=== PATIENT | female | born 1960 | race Hispanic/Latino ===

== ENCOUNTER 2019-05-14 15:29 | Emergency (ER) | payer SELFPAY ==
--- NOTE | 2019-05-14 16:37 | RAD REPORT ---
EXAM DESCRIPTION: RAD - Wrist Left 3 View - 05/14/2019 4:29 pm CLINICAL HISTORY: fall 2-3 weeks ago;Pain Pain COMPARISON: <Comparisons> FINDINGS: Intraarticular fracture of the distal radius is seen with mild palmar angulation. Ulnar st yloid avulsion fracture also seen. Mild soft tissue swelling is present.
--- NOTE | 2019-05-14 17:09 | EDPHYS ---
Physician Documentation [facility] Name: Sydni Mcrae Age: 58 yrs Sex: Female : 1960 Arrival Date: 05/14/2019 Time: 15:33 Bed 24 Private MD: ED Physician Dann Archuleta HPI: 05/14 16:10 This 58 yrs old Female presents to ER via Ambulatory with complaints of Wrist cp Injury. 16:10 The patient or guardian reports deformity, injury, pain. The complaints affect the left cp wrist diffusely. Context: resulted from a fall. Onset: The symptoms/episode began/occurred 04-24-2019. Associated signs and symptoms: Pertinent negatives: cyanosis distally, decreased sensation distally. Patient reports fall on 04-24-2019 causing injury to left wrist. Patient reports she thought it was sprain so went on trip to [place]. After returning from [place], patient was seen at clinic and told wrist is broken and sent to ED for evaluation. Historical: - Allergies: 15:41 No Known Allergies; sg - PMHx: 15:41 None; sg - PSHx: 15:41 Tubal ligation; sg - Immunization history:: Adult Immunizations unknown. - Social history:: Smoking status: Patient/guardian denies using tobacco. - Ebola Screening: : No symptoms or risks identified at this time. ROS: 16:15 Constitutional: Negative for body aches, chills, fever, poor PO intake. cp 16:15 Eyes: Negative for injury, pain, redness, and discharge. cp 16:15 Cardiovascular: Negative for chest pain, palpitations. 16:15 Respiratory: Negative for cough, shortness of breath, wheezing. 16:15 Abdomen/GI: Negative for abdominal pain, vomiting, diarrhea, constipation. 16:15 MS/extremity: Positive for injury or acute deformity, decreased range of motion, swelling, tenderness, of the left wrist, Negative for paresthesias. 16:15 Skin: Negative for rash. 16:15 Neuro: Negative for altered mental status, headache, weakness. 16:15 All other systems are negative. Exam: 16:20 Head/Face: Normocephalic, atraumatic. cp 16:20 Constitutional: The patient appears in no acute distress, alert, awake, non-toxic, well developed, well nourished. 16:20 Musculoskeletal/extremity: ROM: limited passive range of motion due to pain, in the left wrist, Perfusion: the extremity is normally perfused throughout, Sensation intact. Joints: All joints are normal except the left wrist displays deformity, painful range of motion, swelling, tenderness. 16:20 Skin: intact and without open wounds. Vital Signs: 15:41 BP 154 / 62; Pulse 88; Resp 18; Temp 98.2; Pulse Ox 100% on R/A; Pain 8/10; sg Procedures: 17:39 Splinting: Splint applied to left wrist using sling, Orthoglass sugar tong. applied by tech. nurse. Examined by me, post splint application: neurovascular intact, Patient tolerated well. MDM: 16:06 Patient medically screened. cp 17:08 Data reviewed: vital signs, nurses notes, radiologic studies, plain films, I have cp discussed the patient's presentation/case with the attending Emergency Department Physician; and as a result, I will discharge patient. 17:08 Test interpretation: by ED physician or midlevel provider: plain radiologic studies, cp xrays left wrist show mildly displaced distal radius radius and ulna styloid fracture. 05/14 16:07 Order name: XRAY Wrist LEFT 3 view; Complete Time: 16:46 cp 05/14 16:46 Interpretation: Reviewed. 05/14 16:47 Order name: Sugar Tong Forearm Splint; Complete Time: 18:00 05/14 16:47 Order name: Sling; Complete Time: 18:01 Administered Medications: No medications were administered Disposition: 05/15 08:29 Co-signature as Attending Physician, Dann Archuleta MD I agree with the assessment and [facility] plan of care. Disposition: 05/14/19 17:08 Discharged to Home. Impression: Left distal radius fracture. - Condition is Stable. - Discharge Instructions: Wrist Fracture Treated With ORIF. - Prescriptions for Tramadol 50 mg Oral Tablet - take 1 tablet by ORAL route every 8 hours as needed; 12 tablet. - Work release form, Medication Reconciliation Form, Thank You Letter, Antibiotic Education, Prescription Opioid Use form. - Follow up: Eliel Perez MD; When: 1 - 2 days; Reason: wrist fracture. - Problem is new. - Symptoms have improved. Signatures: Dispatcher [employer] EDEliel Buckner RN RN sg Anderson, Corey, MD MD cha Calderon, Audri, RN RN aa5 Dann Osborn, PA PA cp Corrections: (The following items were deleted from the chart) 05/14 17:10 17:08 05/14/2019 17:08 Discharged to Home. Impression: Displaced fracture of pisiform, cp left wrist. Condition is Stable. Forms are Medication Reconciliation Form, Thank You Letter, Antibiotic Education, Prescription Opioid Use. Follow up: Eliel Perez; When: 1 - 2 days; Reason: wrist fracture. Problem is new. Symptoms have improved. cp 18:00 17:10 05/14/2019 17:08 Discharged to Home. Impression: Left distal radius fracture. sg Condition is Stable. Forms are Medication Reconciliation Form, Thank You Letter, Antibiotic Education, Prescription Opioid Use. Follow up: Eliel Perez; When: 1 - 2 days; Reason: wrist fracture. Problem is new. Symptoms have improved. cp
--- NOTE | 2019-05-14 17:09 | ER ---
Nurse's Notes [facility] Name: Sydni Mcrae Age: 58 yrs Sex: Female : 1960 Arrival Date: 05/14/2019 Time: 15:33 Bed 24 Private MD: Diagnosis: Left distal radius fracture Presentation: 05/14 15:36 Presenting complaint: Patient states: was sent for evaluation by Allyn RAMOS sg after a XRAY of left wrist was positive for fx. Transition of care: patient was not received from another setting of care. Onset of symptoms was May 14, 2019. Risk Assessment: Do you want to hurt yourself or someone else? Patient reports no desire to harm self or others. Initial Sepsis Screen: Does the patient meet any 2 criteria? No. Patient's initial sepsis screen is negative. Does the patient have a suspected source of infection? No. Patient's initial sepsis screen is negative. Care prior to arrival: None. 15:36 Acuity: VINCE 4 sg 15:36 Method Of Arrival: Ambulatory sg Historical: - Allergies: 15:41 No Known Allergies; sg - PMHx: 15:41 None; sg - PSHx: 15:41 Tubal ligation; sg - Immunization history:: Adult Immunizations unknown. - Social history:: Smoking status: Patient/guardian denies using tobacco. - Ebola Screening: : No symptoms or risks identified at this time. Screenin:00 Abuse screen: Denies threats or abuse. Nutritional screening: No deficits noted. aa5 Tuberculosis screening: No symptoms or risk factors identified. Fall Risk None identified. Assessment: 16:00 General: Appears comfortable, Behavior is calm, cooperative. Pain: Complains of pain in aa5 left wrist Pain does not radiate. Pain currently is 8 out of 10 on a pain scale. Quality of pain is described as sharp, Pain began April 24, 2019 Is continuous, Aggravated by Movement to left wrist. Neuro: Level of Consciousness is awake, alert, obeys commands, Oriented to person, place, time, situation. Cardiovascular: Patient's skin is warm and dry. Respiratory: Airway is patent Respiratory effort is even, unlabored, Respiratory pattern is regular, symmetrical. GI: No signs and/or symptoms were reported involving the gastrointestinal system. : No signs and/or symptoms were reported regarding the genitourinary system. EENT: No signs and/or symptoms were reported regarding the EENT system. Derm: Skin is pink, warm \\T\\ dry. Musculoskeletal: Deformity noted to left wrist, swelling noted to left wrist. Injury Description: Slipped and fell in the bathroom on April 24, 2019, pt states "I didn't think it was fractured I just thought it was swollen". 17:45 Reassessment: Patient is alert, oriented x 3, equal unlabored respirations, skin aa5 warm/dry/pink. Capillary refill < 3 seconds before and after splint application, sensation and motion intact before and after application. . Vital Signs: 15:41 BP 154 / 62; Pulse 88; Resp 18; Temp 98.2; Pulse Ox 100% on R/A; Pain 8/10; sg ED Course: 15:33 Patient arrived in ED. am2 15:37 Triage completed. sg 15:37 Arm band placed on. sg 16:00 Dann Osborn PA is PHCP. cp 16:00 Dann Archuleta MD is Attending Physician. cp 16:00 Patient has correct armband on for positive identification. Placed in gown. Bed in low aa5 position. Call light in reach. Side rails up X 1. 16:06 Anita Warren, RN is Primary Nurse. aa5 16:30 XRAY Wrist LEFT 3 view In Process Unspecified. EDMS 17:06 Eliel Perez MD is Referral Physician. cp 17:45 Orthoglass splint: Sugar tong splint applied on left arm. Sling applied to left arm. lt1 17:58 No provider procedures requiring assistance completed. Patient did not have IV access aa5 during this emergency room visit. Administered Medications: No medications were administered Outcome: 17:08 Discharge ordered by . cp 17:58 Discharged to home ambulatory. aa5 17:58 Condition: stable 17:58 Discharge instructions given to patient, Instructed on discharge instructions, follow up and referral plans. medication usage, Demonstrated understanding of instructions, follow-up care, medications, Prescriptions given X 1. 18:00 Patient left the ED. sg Signatures: Dispatcher [employer] EDMS Eliel North RN RN Anita Warren, SHOLA JOLLEY aa5 Dann Osborn PA PA cp Eliza Wilcox am2 Tali Marino lt1
[2019-05-14 18:52] VITALS: BP 154/62; TEMP 98.2; O2SAT 100
== END 2019-05-14 18:00 | disposition home or self-care (01) ==
LOC: ER 15:29
PROC: 2W3DX1Z Immobilization of Left Lower Arm using Splint (ICD-10-PCS; principal; 2019-05-14)
DX: S52.502A Unspecified fracture of the lower end of left radius, initial encounter for closed fracture (principal); W19.XXXA Unspecified fall, initial encounter; Y93.9 Activity, unspecified; Y92.9 Unspecified place or not applicable
CPT/HCPCS: 99283

== ENCOUNTER 2021-11-02 16:11 | Emergency (ER) | payer OTHER, SELFPAY ==
[2021-11-02] MEDS ORDERED: IBUPROFEN 400 MG TAB ONE (17:16)
[2021-11-02] MEDS ORDERED: IBUPROFEN 200 MG TAB PO ONE (17:17)
[2021-11-02] MEDS ORDERED: HYDROCODONE/APAP 7.5/325 MG TAB ONE (17:17)
--- NOTE | 2021-11-02 17:56 | RAD REPORT ---
EXAM DESCRIPTION: RAD - Tib Fib Left - 11/02/2021 5:48 pm CLINICAL HISTORY: PAIN COMPARISON: No comparisons FINDINGS: Mild diffuse osteopenia is seen. Soft tissue swelling is seen adjacent to the lateral mall eolus. No acute fracture or dislocation. Small calcaneal spurs.
--- NOTE | 2021-11-02 17:57 | RAD REPORT ---
EXAM DESCRIPTION: RAD - Femur Left - 11/02/2021 5:48 pm CLINICAL HISTORY: PAIN COMPARISON: No comparisons FINDINGS: Prominent soft tissue swelling is seen superior and anterior to the patella. No fracture o r dislocation seen.
--- NOTE | 2021-11-02 17:58 | RAD REPORT ---
EXAM DESCRIPTION: RAD - Foot Left 3 View - 11/02/2021 5:48 pm CLINICAL HISTORY: PAIN COMPARISON: No comparisons FINDINGS: Small calcaneal spurs are present. There is fracture likely present involving the base of the second, third and fourth metatarsals with moderate adjacent soft tissue swelling.
--- NOTE | 2021-11-02 18:00 | RAD REPORT ---
EXAM DESCRIPTION: RAD - Forearm Left - 11/02/2021 5:48 pm CLINICAL HISTORY: PAIN COMPARISON: Tib Fib Left dated 11/02/2021 FINDINGS: Hardware is in place distal radius. No acute fracture is seen.
--- NOTE | 2021-11-02 18:31 | ER ---
Nurse's Notes [facility] Name: Sydni Mcrae Age: 60 yrs Sex: Female : 1960 Arrival Date: 11/02/2021 Time: 16:12 Bed 17 Private MD: Diagnosis: Abrasion of lower leg-left;Contusion of left lower leg, initial encounter;Nondisplaced fracture of fourth metatarsal bone, left foot, initial encounter for closed fracture;Nondisplaced fracture of second metatarsal bone, left foot, initial encounter for closed fracture;Nondisplaced fracture of third metatarsal bone, left foot, initial encounter for closed fracture;Contusion of left forearm, initial encounter;Contusion of left knee, initial encounter Presentation: 11/02 16:18 Chief complaint: Patient states: she was moving a piano when it fell, hit her left knee ap3 and slid down her left leg. patient states the nurse at the school wrapped it up for her prior to her arrival to the ED for further evaluation. Coronavirus screen: At this time, the client does not indicate any symptoms associated with coronavirus-19. Ebola Screen: No symptoms or risks identified at this time. Initial Sepsis Screen: Does the patient meet any 2 criteria? No. Patient's initial sepsis screen is negative. Does the patient have a suspected source of infection? No. Patient's initial sepsis screen is negative. Risk Assessment: Do you want to hurt yourself or someone else? Patient reports no desire to harm self or others. Onset of symptoms was November 02, 2021 at 15:30. 16:18 Method Of Arrival: Wheelchair ap3 16:18 Acuity: VINCE 4 ap3 Triage Assessment: 16:20 General: Appears uncomfortable, Behavior is calm, cooperative. Pain: Complains of pain ap3 in left leg Pain currently is 10 out of 10 on a pain scale. Neuro: Level of Consciousness is awake, alert, obeys commands, Oriented to person, place, time, situation. Cardiovascular: Patient's skin is warm and dry. Respiratory: Airway is patent Respiratory effort is even, unlabored, Respiratory pattern is regular, symmetrical. Musculoskeletal: Swelling present in left leg. Injury Description: Crush injury sustained to left leg. Historical: - Allergies: 16:20 No Known Allergies; ap3 - PMHx: 16:20 Diabetes mellitus; ap3 - Immunization history:: Client reports receiving the 2nd dose of the Covid vaccine. - Social history:: Smoking status: Patient denies any tobacco usage or history of. Screenin:21 Abuse screen: Denies threats or abuse. Nutritional screening: No deficits noted. ap3 Tuberculosis screening: No symptoms or risk factors identified. 16:23 Fall Risk None identified. arteaga Assessment: 16:23 General: Appears in no apparent distress. Behavior is calm, cooperative. Pain: arteaga Complains of pain in left leg. Musculoskeletal: Reports pain in left leg Pain is 7 out of 10 on a pain scale. Vital Signs: 16:18 BP 145 / 97; Pulse 70; Resp 19; Temp 98.7; Pulse Ox 100% ; Weight 58.97 kg; Height 5 ap3 ft. 1 in. (154.94 cm); Pain 10/10; 16:18 Body Mass Index 24.56 (58.97 kg, 154.94 cm) ap3 ED Course: 16:12 Patient arrived in ED. as 16:20 Triage completed. ap3 16:20 Dann Osborn PA is PHCP. cp 16:20 Dann Archuleta MD is Attending Physician. cp 16:21 Arm band placed on right wrist. ap3 16:23 Doretha Molina, RN is Primary Nurse. arteaga 16:23 Patient has correct armband on for positive identification. Bed in low position. arteaga 16:23 No provider procedures requiring assistance completed. arteaga 17:49 XRAY Forearm LEFT In Process Unspecified. EDMS 17:49 XRAY Femur LEFT In Process Unspecified. EDMS 17:49 XRAY Tib Fib LEFT In Process Unspecified. EDMS 17:50 XRAY Foot LEFT 3 View In Process Unspecified. EDMS 18:27 Tim Moore MD is Referral Physician. cp Administered Medications: 17:21 Drug: Ibuprofen 600 mg Route: PO; arteaga 17:21 Follow up: Response: No adverse reaction arteaga 17:21 Drug: Hydrocodone-Acetaminophen (7.5 mg-325 mg) 1 tabs Route: PO; arteaga 17:21 Follow up: Response: No adverse reaction arteaga Medication: 16:23 VIS not applicable for this client. arteaga Outcome: 18:30 Discharge ordered by . cp 19:06 Patient left the ED. arteaga Signatures: Dispatcher [employer] Jennifer Aleman Page, GLADIS Quigley cp, Amanda, RN RN ap3 RenéeDoretha Caba RN RN arteaga
--- NOTE | 2021-11-02 18:31 | EDPHYS ---
Physician Documentation [facility] Name: Sydni Mcrae Age: 60 yrs Sex: Female : 1960 Arrival Date: 11/02/2021 Time: 16:12 Bed 17 Private MD: ED Physician Dann Archuleta HPI: 11/02 17:05 This 60 yrs old Female presents to ER via Wheelchair with complaints of Leg cp Injury. 17:05 The patient presents with an injury, pain, that is acute. The complaints affect the cp left quadriceps, left knee, left kevin, anterior aspect of left ankle and dorsum of left foot. Context: Patient accompanied to ED by friend who interprets and reports piano fell onto patient's left leg and left foot earlier today. 17:05 Associated signs and symptoms: The patient has no apparent associated signs or cp symptoms. Treatment prior to arrival includes: gary wrap. Historical: - Allergies: 16:20 No Known Allergies; ap3 - PMHx: 16:20 Diabetes mellitus; ap3 - Immunization history:: Client reports receiving the 2nd dose of the Covid vaccine. - Social history:: Smoking status: Patient denies any tobacco usage or history of. ROS: 17:10 Constitutional: Negative for body aches, chills, fever, poor PO intake. cp 17:10 Neck: Negative for pain with movement, pain at rest. cp 17:10 Cardiovascular: Negative for chest pain. 17:10 Respiratory: Negative for cough, shortness of breath, wheezing. 17:10 Back: Negative for pain at rest, pain with movement. 17:10 MS/extremity: Positive for abrasion, pain, swelling, tenderness, of the left foot and left leg, Negative for paresthesias. 17:10 Neuro: Positive for tingling, of the left foot, Negative for altered mental status, headache, numbness, weakness. 17:10 All other systems are negative. Exam: 17:15 Constitutional: The patient appears in no acute distress, alert, awake, non-toxic, well cp developed, well nourished, uncomfortable. 17:15 Head/Face: Normocephalic, atraumatic. cp 17:15 Eyes: Periorbital structures: appear normal, Conjunctiva: normal, no exudate, no injection, Sclera: no appreciated abnormality, Lids and lashes: appear normal, bilaterally. 17:15 ENT: External ear(s): are unremarkable, Nose: is normal, Mouth: Lips: moist, Oral mucosa: moist. 17:15 Neck: ROM/movement: is normal, is supple, without pain, no range of motions limitations. 17:15 Chest/axilla: Inspection: normal. 17:15 Cardiovascular: Rate: normal, Rhythm: regular, Pulses: Pulses are 2+ in left dorsalis pedis artery. JVD: is not appreciated. 17:15 Respiratory: the patient does not display signs of respiratory distress, Respirations: normal, no use of accessory muscles, no retractions, labored breathing, is not present, Breath sounds: are clear throughout, no decreased breath sounds, no stridor, no wheezing. 17:15 Abdomen/GI: Inspection: abdomen appears normal, Palpation: abdomen is soft and non-tender, in all quadrants. 17:15 Back: pain, is absent, ROM is normal. 17:15 Musculoskeletal/extremity: Extremities: grossly normal except: noted in the left leg: pain, mild swelling noted anterior left lower leg and left foot, superficial abrasions noted to anterior left lower leg and left foot, mild ecchymosis noted anterior left lower leg and dorsum of left foot. Vital Signs: 16:18 BP 145 / 97; Pulse 70; Resp 19; Temp 98.7; Pulse Ox 100% ; Weight 58.97 kg; Height 5 ap3 ft. 1 in. (154.94 cm); Pain 10/10; 16:18 Body Mass Index 24.56 (58.97 kg, 154.94 cm) ap3 Procedures: 18:45 Splinting: Splint applied to left leg using Orthoglass splint, posterior leg. applied cp by tech. Examined by me, post splint application: neurovascular intact, Patient tolerated well. MDM: 16:23 Patient medically screened. josephine 17:00 Differential diagnosis: dislocation, open fracture, closed fracture, contusion, cp abrasion. 18:30 Data reviewed: vital signs, nurses notes, radiologic studies, plain films. cp 18:30 Test interpretation: by ED physician or midlevel provider: plain radiologic studies. cp Counseling: I had a detailed discussion with the patient and/or guardian regarding: the historical points, exam findings, and any diagnostic results supporting the discharge/admit diagnosis, radiology results, the need for outpatient follow up, for definitive care, a orthopedic surgeon, to return to the emergency department if symptoms worsen or persist or if there are any questions or concerns that arise at home. Response to treatment: the patient's symptoms have markedly improved after treatment, and as a result, I will discharge patient. ED course: VSS. Xrays reviewed that showed fractures of proximal left second through fourth metatarsals. Extremity splinted. Will discharge to home to f/u with ortho. Patient instructed on signs of compartment syndrome and to seek immediate attn. 11/02 16:58 Order name: XRAY Forearm LEFT; Complete Time: 18:36 cp 11/02 18:36 Interpretation: Report reviewed. cp 11/02 16:58 Order name: XRAY Femur LEFT; Complete Time: 18:36 cp 11/02 18:36 Interpretation: Reviewed. cp 11/02 16:58 Order name: XRAY Tib Fib LEFT; Complete Time: 18:36 cp 11/02 18:36 Interpretation: Report reviewed. cp 11/02 16:58 Order name: XRAY Foot LEFT 3 View; Complete Time: 18:36 cp 11/02 18:37 Interpretation: Reviewed report. cp 11/02 18:09 Order name: Crutches; Complete Time: 19:06 cp 11/02 18:09 Order name: Posterior Leg Splint; Complete Time: 19:06 cp 11/02 18:14 Order name: Wrist Splint; Complete Time: 19:06 cp 11/02 18:14 Order name: Wound dressing: abrasions across anterior leg; Complete Time: 19:06 cp Administered Medications: 17:21 Drug: Ibuprofen 600 mg Route: PO; arteaga 17:21 Follow up: Response: No adverse reaction arteaga 17:21 Drug: Hydrocodone-Acetaminophen (7.5 mg-325 mg) 1 tabs Route: PO; arteaga 17:21 Follow up: Response: No adverse reaction arteaga Disposition Summary: 11/02/21 18:30 Discharge Ordered Location: Home cp Problem: new cp Symptoms: have improved cp Condition: Stable cp Diagnosis - Abrasion of lower leg - left cp - Contusion of left lower leg, initial encounter cp - Nondisplaced fracture of fourth metatarsal bone, left foot, initial encounter for cp closed fracture - Nondisplaced fracture of second metatarsal bone, left foot, initial encounter for cp closed fracture - Nondisplaced fracture of third metatarsal bone, left foot, initial encounter for cp closed fracture - Contusion of left forearm, initial encounter cp - Contusion of left knee, initial encounter cp Followup: cp - With: Tim Moore MD - When: 2 - 3 days - Reason: Recheck today's complaints Discharge Instructions: - Discharge Summary Sheet cp - Contusion cp - Metatarsal Fracture cp - Wrist Pain, Adult cp Forms: - Medication Reconciliation Form cp - Thank You Letter cp - Antibiotic Education cp - Prescription Opioid Use cp Prescriptions: - Ibuprofen 600 mg Oral Tablet - take 1 tablet by ORAL route every 8 hours As needed take with food; 30 tablet; cp Refills: 0, Product Selection Permitted - Tylenol-Codeine #3 300 mg-30 mg Oral - take 2 tablet by ORAL route every 6-8 hours; 20 tablet; Refills: 0, Product cp Selection Permitted Signatures: Dispatcher [employer] Dann Carbone MD MD cha Page, Corey, PA Eliza Valencia cp, RN RN ap3 Doretha Molina RN RN arteaga
[2021-11-02 19:10] VITALS: BP 145/97; TEMP 98.7; O2SAT 100
== END 2021-11-02 19:06 | disposition home or self-care (01) ==
LOC: ER 16:11
PROC: 2W3RX1Z Immobilization of Left Lower Leg using Splint (ICD-10-PCS; principal; 2021-11-02)
DX: S92.345A Nondisplaced fracture of fourth metatarsal bone, left foot, initial encounter for closed fracture (principal); S80.12XA Contusion of left lower leg, initial encounter; E11.9 Type 2 diabetes mellitus without complications
CPT/HCPCS: 99283